=== PATIENT | female | born 1930 | race Two or more races ===

== ENCOUNTER 2017-07-03 11:38 | Emergency (ER) | payer OTHER ==
[2017-07-03 11:49] VITALS: BMI 29.2
[2017-07-03] MEDS ORDERED: MAG HYDROX/AL HYDROX/SIMETH 355 ML ORAL.SUSP PO ONE (12:22)
[2017-07-03] MEDS ORDERED: ALBUTEROL SO4 2.5/IPRATROPIUM 0.5 INH SOL 3 ML VIAL.NEB. NEB ONE ×2 (12:22→12:43)
--- NOTE | 2017-07-03 12:25 | PDOC ---
History of Present Illness - General Chief Complaint: Back Pain Stated Complaint: BACK PAIN Time Seen by Provider: 07/03/17 11:48 History Source: Patient Exam Limitations: Language Barrier - History of Present Illness Initial Comments: 07/03/17 12:24 Patient is an 86F with history of dementia, HTN, COPD, CAD, GERD, HLD and osteoporosis here today complaining of upper abdominal pain for the past 24 hours. She denies associated nausea, vomiting, fevers, chills, diarrhea and constipation. Last bowel movement was yesterday. The pain does not radiate anywhere. She denies chest pain and shortness of breath. She states that she is not taking her medication because of associated stomach pain, but her records indicate that she has an extensive list of medications that she takes. Patient' s capacity for history was limited, even with the use of an credit operations specialist. She complains of bilateral ear pain and states that she hasn't been treated for her ear infection, but her records indicate that she refused ear drops for an apparent outer ear infection. Past History - Past Medical History Allergies/Adverse Reactions: Allergies Allergy/AdvReac Type Severity Reaction Status Date / Time No Known Allergies Allergy Verified 07/03/17 11:50 Home Medications: Ambulatory Orders Acetaminophen [Tylenol] 650 mg PO QID PRN 07/03/17 Albuterol 0.083% Nebulizer Janeen [Ventolin 0.083% Nebulizer Soln -] 1 amp IN QID PRN 07/03/17 Albuterol Sulfate Inhaler - [Ventolin HFA Inhaler -] 1 puff IN QID PRN 07/03/17 Amlodipine Besylate 10 mg PO DAILY 07/03/17 Ammonium Lactate [Skin Treatment] 1 applic TP BID 07/03/17 Amox-Tr/K Cl [Augmentin - 875Mg Tablet] 1 tab PO BID #20 tablet 07/03/17 Aspirin [ASA -] 81 mg PO DAILY 07/03/17 Brimonidine Tartrate [Alphagan 0.2% -] 1 drop OS BID 07/03/17 Calcium Carbonate/Vitamin D3 [Calcium 500-Vit D3 400 Tablet] 1 tab PO BID Cholecalciferol (Vitamin D3) [Vitamin D3] 5,000 unit PO WEEKLY 07/03/17 Ciprofloxacin HCl/Dexameth [Ciprodex Otic Suspension] 1 drop OU TID 07/03/17 Donepezil HCl [Aricept -] 10 mg PO DAILY 07/03/17 Dorzolamide HCl/Timolol Maleat [Cosopt Eye Drops] 1 drop OU BID 07/03/17 Fluticasone Prop 0.05% Nasal [Flonase -] 2 sprays IN DAILY 07/03/17 Furosemide [Lasix] 20 mg PO DAILY 07/03/17 Gabapentin [Neurontin] 100 mg PO BID 07/03/17 Lactobacillus Acidophilus [Acidophilus] 460 mg PO DAILY 07/03/17 Lisinopril [Zestril] 40 mg PO DAILY 07/03/17 Loperamide HCl [Loperamide] 2 mg PO QID PRN 07/03/17 Metformin Xr [Glucophage *Xr* -] 500 mg PO DAILY@0700 07/03/17 Montelukast Na [Singulair -] 10 mg PO HS 07/03/17 Multivitamin,Therapeutic [Thera] 1 tab PO DAILY 07/03/17 Pantoprazole Sodium [Protonix] 40 mg PO DAILY 07/03/17 Potassium Chloride 20 meq PO DAILY 07/03/17 Salmeterol/Fluticasone [Advair 500Mcg/50Mcg -] 1 puff IN BID 07/03/17 Umeclidinium [place] [Incruse Ellipta] 1 puff IN DAILY 07/03/17 - Suicide/Smoking/Psychosocial Hx Smoking History: Unknown if ever smoked Review of Systems - Review of Systems Comments:: 07/03/17 12:28 GENERAL/CONSTITUTIONAL: No fever or chills. No weakness. HEAD, EYES, EARS, NOSE AND THROAT: No change in vision. Positive for ear pain and discharge. No sore throat. CARDIOVASCULAR: No chest pain or shortness of breath RESPIRATORY: No cough, wheezing, or hemoptysis. GASTROINTESTINAL: No nausea, vomiting, diarrhea or constipation. GENITOURINARY: No dysuria, frequency, or change in urination. SKIN: No rash NEUROLOGIC: No headache, vertigo, loss of consciousness, or change in strength/ sensation. ENDOCRINE: No increased thirst. No abnormal weight change ALLERGIC/IMMUNOLOGIC: No hives or skin allergy. *Physical Exam - Vital Signs Last Vital Signs Temp Pulse Resp BP Pulse Ox 98.7 F 84 16 123/73 100 07/03/17 11:38 07/03/17 11:38 07/03/17 11:38 07/03/17 11:38 07/03/17 11:38 - Physical Exam Comments: 07/03/17 12:31 GENERAL: Awake, alert, and fully oriented, in no acute distress HEAD: No signs of trauma, normocephalic, atraumatic EYES: PERRLA, EOMI, sclera anicteric, conjunctiva clear ENT: Auricles normal inspection, hearing grossly normal, nares patent, oropharynx clear without exudates. Moist mucosa EAR: Fluid level in right TM, bulging, small amount of pus LUNGS: No distress, speaks full sentences, clear to auscultation bilaterally HEART: Regular rate and rhythm, normal S1 and S2, no murmurs, rubs or gallops, peripheral pulses normal and equal bilaterally. ABDOMEN: Positive atkins sign, RUQ tenderness, epigastric tenderness, LLQ tenderness. No guarding, no rebound. No masses EXTREMITIES: Normal inspection, Normal range of motion, no edema. No clubbing or cyanosis. NEUROLOGICAL: Cranial nerves II through XII grossly intact. Normal speech, normal gait, no focal sensorimotor deficits SKIN: Warm, Dry, normal turgor, no rashes or lesions noted. ED Treatment Course - LABORATORY CBC & Chemistry Diagram: 07/03/17 10:47 07/03/17 10:47 - RADIOLOGY Radiology Studies Ordered: Category Date Time Status CXRPORT [CHEST X-RAY PORTABLE*] [RAD] Stat Radiology 07/03/17 12:12 Ordered ABDOMEN US -LIMITED [US] Stat Ultrasound 07/03/17 12:11 Ordered Medical Decision Making - Medical Decision Making 07/03/17 12:37 Patient is an 86F with history of dementia, HTN, COPD, CAD, GERD, HLD and osteoporosis here today with abdominal pain and ear pain. Vital signs stable. Will evaluate with abdominal and cardiac labs, cxr, ekg, RUQ US and CT. Differential diagnosis includes cholecystitis, diverticulitis, uti. 07/03/17 12:40 CXR shows no acute cardiopulmonary process. 07/03/17 12:56 EKG shows normal sinus rhythm, normal rate, normal axis. No ST elevations, no t- wave abnormalities. 07/03/17 14:11 Laboratory Tests 07/03/17 07/03/17 10:47 10:47 WBC 6.5 Hgb 11.6 Hct 36.2 Plt Count 221 Troponin I < 0.02 CBC normal, CMP reassuring, trop negative. 07/03/17 14:42 Ultrasound negative for any abnormalities. 07/03/17 15:42 CT shows no acute pathology in the abdomen or pelvis. Urine still pending. 07/03/17 18:23 UA normal. Discharged with augmentin to assisted living facility. First dose given here. *DC/Admit/Observation/Transfer Diagnosis at time of Disposition: Ear infection Abdominal pain Qualifiers: Abdominal location: epigastric Qualified Code(s): R10.13 - Epigastric pain - Discharge Dispostion Admit: No - Prescriptions Prescriptions: Amox-Tr/K Cl [Augmentin - 875Mg Tablet] 1 tab PO BID #20 tablet - Referrals Referrals: Saritha Diaz MD [Primary Care Provider] - - Patient Instructions Printed Discharge Instructions: Middle Ear Infection Additional Instructions: Please give the patient Augmentin 875-125 BID for 10 days, 20 in total, for a middle ear infection.
--- NOTE | 2017-07-03 12:38 | PDOC ---
Attending Attestation - HPI HPI: 07/03/17 12:38 Pt is a 86 yo F from [facility] with a PMHx of HTN, COPD, CAD, GERD, HLD, osteoporosis, Dementia who presents to the ED with epigastric pain since last night. Upon evaluation, patient is a poor historian however states her pain is likely due to her medications. Patient reports stopping her daily medications secondary to her pain however now reports her abdominal pain is worse, constant and new. Patient denies any exacerbating or alleviating factors. She denies chest pain, headache or dizziness. She denies fever, chills, nausea, vomit, diarrhea or constipation. She denies dysuria, frequency, urgency or hematuria. - Physicial Exam PE: 07/03/17 12:38 GENERAL: Awake, alert, and fully oriented, in no acute distress HEAD: No signs of trauma EYES: PERRLA, EOMI, sclera anicteric, conjunctiva clear ENT: Hearing grossly normal, nares patent, oropharynx clear without exudates. Moist mucosa. +Purulent drainage to the R ear. NECK: Normal ROM, supple, no lymphadenopathy, JVD, or masses LUNGS: Breath sounds equal, clear to auscultation bilaterally. No wheezes, and no crackles HEART: Regular rate and rhythm, normal S1 and S2, no murmurs, rubs or gallops ABDOMEN: +RUQ tenderness. +LLQ tenderness. Soft, nontender, normoactive bowel sounds. No guarding, no rebound. No masses EXTREMITIES: Normal range of motion, no edema. No clubbing or cyanosis. No cords, erythema, or tenderness NEUROLOGICAL: Cranial nerves II through XII grossly intact. Normal speech, normal gait SKIN: Warm, Dry, normal turgor, no rashes or lesions noted. - Medical Decision Making 07/03/17 12:39 Documentation prepared by Juju Taylor, acting as senior medical billing specialist for Simon Napoles MD <Juju Taylor - Last Filed: 07/03/17 12:46> - Resident Resident Name: Suraj Washburn - ED Attending Attestation I have performed the following: I have examined & evaluated the patient, The case was reviewed & discussed with the resident, I agree w/resident's findings & plan, Exceptions are as noted - Medical Decision Making 07/03/17 12:37 A portion of this note was written by my scribe, under my supervision. Vital Signs Temp Pulse Resp BP Pulse Ox 98.7 F 84 16 123/73 100 07/03/17 11:38 07/03/17 11:38 07/03/17 11:38 07/03/17 11:38 07/03/17 11:38 86 old female history dementia, hypertension, COPD, coronary disease, GERD, hyperlipidemia, osteoporosis presents with right ear pain and abdominal pain. Patient reports that the pain started yesterday night and was constant. Reports that the pain is in the upper abdominal pain in the left lower quadrant pain. The patient denies fevers or chills, nausea, vomiting or diarrhea. Came to the ED for further evaluation. The patient is demonstrating otitis media with purulence in the right ear canal. Will most certainly need antibiotics. In addition, patient with right upper quadrant pain we'll need to value for biliary colic versus acute cholecystitis. We'll also obtain an abdominal CT for left lower quadrant tenderness. Differential includes colitis, diverticulitis. 07/03/17 16:48 CBC, BMP 07/03/17 10:47 07/03/17 10:47 CMP Sodium 141 mmol/L (136-145) 07/03/17 10:47 Potassium 4.3 mmol/L (3.5-5.1) 07/03/17 10:47 Chloride 102 mmol/L (98-107) 07/03/17 10:47 Carbon Dioxide 30 mmol/L (21-32) 07/03/17 10:47 Anion Gap 9 (8-16) 07/03/17 10:47 BUN 21 mg/dL (7-18) H 07/03/17 10:47 Creatinine 0.8 mg/dL (0.55-1.02) 07/03/17 10:47 Creat Clearance w eGFR > 60 (>60) 07/03/17 10:47 Random Glucose 88 mg/dL (74-106) 07/03/17 10:47 Calcium 9.1 mg/dL (8.5-10.1) 07/03/17 10:47 Total Bilirubin 0.3 mg/dL (0.2-1.0) 07/03/17 10:47 AST 19 U/L (15-37) 07/03/17 10:47 ALT 16 U/L (12-78) 07/03/17 10:47 Alkaline Phosphatase 62 U/L (45-117) 07/03/17 10:47 Creatine Kinase 82 IU/L (26-192) 07/03/17 10:47 Troponin I < 0.02 ng/ml (0.00-0.05) 07/03/17 10:47 Total Protein 6.5 g/dl (6.4-8.2) 07/03/17 10:47 Albumin 3.4 g/dl (3.4-5.0) 07/03/17 10:47 Lipase 173 U/L (73-393) 07/03/17 10:47 CT scan of abdomen and pelvis and ultrasound demonstrates no acute findings. UA pending. <Simon Napoles - Last Filed: 07/03/17 16:49> Heart Score/ECG Review #1 ECG reviewed & interpreted by me at: 12:30 07/03/17 13:01 NSR 72, no std/ean, normal axis, normal intervals, QTC 458 msec <Simon Napoles - Last Filed: 07/03/17 16:49>
[2017-07-03] MEDS ORDERED: MAG HYDROX/AL HYDROX/SIMETH 30 ML UNIT-DOSE CUP ONE (12:43)
[2017-07-03 12:54] LABS: BASOPHIL 1.1 % (0-2.0); EOSINOPHIL 2.8 % (0-4.5); MCH 28.4 pg (25.7-33.7); MEAN CELL VOLUME 88.7 fl (80-96); MEAN PLT VOLUME 8.2 fl (7.5-11.1); NEUTROPHILS 52.5 % (42.8-82.8); PLATELET COUNT 221 K/MM3 (134-434); RDW 15.6 % (11.6-15.6); WHITE BLOOD COUNT 6.5 K/mm3 (4.0-10.0)
[2017-07-03 13:21] LABS: ALBUMIN 3.4 g/dl (3.4-5.0); ANION GAP 9 (8-16); BILIRUBIN,TOTAL 0.3 mg/dL (0.2-1.0); CALCIUM 9.1 mg/dL (8.5-10.1); CO2 30 mmol/L (21-32); CREATININE 0.8 mg/dL (0.55-1.02); GLUCOSE,RANDOM 88 mg/dL (74-106); SGPT/ALT 16 U/L (12-78); TOT PROT 6.5 g/dl (6.4-8.2)
[2017-07-03 13:22] LABS: ALK PHOS 62 U/L (45-117); SGOT/AST 19 U/L (15-37)
[2017-07-03 13:24] LABS: CPK 82 IU/L (26-192); TROPONIN I < 0.02 ng/ml (0.00-0.05)
[2017-07-03 16:29] LABS: URINE APPEARANCE CLEAR; URINE BILIRUBIN NEGATIVE (NEGATIVE); URINE BLOOD NEGATIVE (NEGATIVE); URINE COLOR STRAW; URINE GLUCOSE (UA) NEGATIVE (NEGATIVE); URINE KETONE TRACE (NEGATIVE); URINE NITRITE NEGATIVE (NEGATIVE); URINE PROTEIN NEGATIVE (NEGATIVE); URINE UROBILINOGEN NEGATIVE mg/dL (0.2-1.0)
[2017-07-03 16:52] LABS: URINE LEUK ESTERASE 1+ (NEGATIVE)
[2017-07-03 16:54] LABS: URINE RBC 1 /hpf (0-3); URINE WBC 7 /hpf (3-5)
[2017-07-03] MEDS ORDERED: AMOX TR/POT CLAV 875MG/125MG TABLETS (FP) PO ONE (17:21)
[2017-07-03] MEDS ORDERED: AMOX TR/POT CLAV 875MG/125MG TABLETS (FP) ONE (17:46)
--- NOTE | 2017-07-04 09:41 | EKG ---
Test Reason : Blood Pressure : / mmHG Vent. Rate : 079 BPM Atrial Rate : 079 BPM P-R Int : 170 ms QRS Dur : 088 ms QT Int : 400 ms P-R-T Axes : 025 -14 029 degrees QTc Int : 458 ms NORMAL SINUS RHYTHM NORMAL ECG NO PREVIOUS ECGS AVAILABLE Confirmed by OLAMIDE HDZ MD ([id number]) on 07/04/2017 9:40:52 AM Referred By: Confirmed By:OLAMIDE HDZ MD
[2017-07-04 11:44] VITALS: BP 134/82; PULSE 88; TEMP 98.7
== END 2017-07-03 19:46 | disposition home or self-care (01) ==
LOC: JER 11:38
PROC: 3E0F7GC Introduction of Other Therapeutic Substance into Respiratory Tract, Via Natural or Artificial Opening (ICD-10-PCS; principal; 2017-07-03)
DX: R10.10 Upper abdominal pain, unspecified (principal); H66.91 Otitis media, unspecified, right ear; I25.10 Atherosclerotic heart disease of native coronary artery without angina pectoris; I10 Essential (primary) hypertension; J44.9 Chronic obstructive pulmonary disease, unspecified; K21.9 Gastro-esophageal reflux disease without esophagitis; F03.90 Unspecified dementia, unspecified severity, without behavioral disturbance, psychotic disturbance, mood disturbance, and anxiety
CPT/HCPCS: 36415; 71010-TC; 74177-TC; 76705-TC; 80053; 81003; 81015; 83690; 84484; 85025; 87086; 93005; 93010; 94640; 99282-25

== ENCOUNTER 2019-03-20 19:46 | Emergency (ER) | payer OTHER ==
[2019-03-20 20:15] VITALS: BP 160/90; PULSE 73; TEMP 98.1; BMI 28.5
--- NOTE | 2019-03-20 20:39 | PDOC ---
History of Present Illness - General Chief Complaint: Asthma Stated Complaint: SHORTNESS OF BREATH Time Seen by Provider: 03/20/19 20:17 History Source: Patient Exam Limitations: No Limitations - History of Present Illness Initial Comments: 03/20/19 20:19 88YOF with h/o asthma, HTN, CAD, HLD, GERD, osteoporosis, dementia who p/w SOB, wheezing, and mild intermittent subjective fever, onset today. She states she ran out of her normal COPD medications at home and the pharmacy is closed so she cannot technical support associate new ones. Also notes she has some degree of chronic abdominal pain (points to multiple areas in the abdomen) but maybe increased pain over the past few days. She denies nausea, vomiting, diarrhea, constipation , black/bloody/white stool, difficulty eating, cough, sputum production, or other symptoms. Past History - Past Medical History Allergies/Adverse Reactions: Allergies Allergy/AdvReac Type Severity Reaction Status Date / Time No Known Allergies Allergy Verified 03/20/19 19:51 Home Medications: Ambulatory Orders Acetaminophen [Tylenol] 650 mg PO QID PRN 07/03/17 Albuterol 0.083% Nebulizer Janeen [Ventolin 0.083% Nebulizer Soln -] 1 amp IN QID PRN 07/03/17 Albuterol Sulfate Inhaler - [Ventolin HFA Inhaler -] 1 puff IN QID PRN 07/03/17 Amlodipine Besylate 10 mg PO DAILY 07/03/17 Ammonium Lactate [Skin Treatment] 1 applic TP BID 07/03/17 Amox-Tr/K Cl [Augmentin 875-125mg Tablet -] 1 tab PO BID #20 tablet 07/03/17 Aspirin [ASA -] 81 mg PO DAILY 07/03/17 Brimonidine Tartrate [Alphagan 0.2% -] 1 drop OS BID 07/03/17 Calcium Carbonate/Vitamin D3 [Calcium 500-Vit D3 400 Tablet] 1 tab PO BID Cholecalciferol (Vitamin D3) [Vitamin D3] 5,000 unit PO WEEKLY 07/03/17 Ciprofloxacin HCl/Dexameth [Ciprodex Otic Suspension] 1 drop OU TID 07/03/17 Donepezil HCl [Aricept -] 10 mg PO DAILY 07/03/17 Dorzolamide HCl/Timolol Maleat [Cosopt Eye Drops] 1 drop OU BID 07/03/17 Fluticasone Prop 0.05% Nasal [Flonase -] 2 sprays IN DAILY 07/03/17 Furosemide [Lasix] 20 mg PO DAILY 07/03/17 Gabapentin [Neurontin] 100 mg PO BID 07/03/17 Lactobacillus Acidophilus [Acidophilus] 460 mg PO DAILY 07/03/17 Lisinopril [Zestril] 40 mg PO DAILY 07/03/17 Loperamide HCl [Loperamide] 2 mg PO QID PRN 07/03/17 Montelukast Na [Singulair -] 10 mg PO HS 07/03/17 Multivitamin,Therapeutic [Thera] 1 tab PO DAILY 07/03/17 Pantoprazole Sodium [Protonix] 40 mg PO DAILY 07/03/17 Potassium Chloride 20 meq PO DAILY 07/03/17 Salmeterol/Fluticasone [Advair 500Mcg/50Mcg -] 1 puff IN BID 07/03/17 Umeclidinium [place] [Incruse Ellipta] 1 puff IN DAILY 07/03/17 metFORMIN XR [Glucophage Xr -] 500 mg PO DAILY@0700 07/03/17 Albuterol Sulfate Inhaler - [Ventolin HFA Inhaler -] 1 puff IH QID PRN #1 inhaler 03/20/19 Azithromycin 250 mg PO DAILY #4 tablet 03/20/19 Prednisone [Deltasone] 40 mg PO DAILY #8 tablet 03/20/19 Dementia: Yes HTN: Yes Hypercholesterolemia: Yes Psychiatric Problems: Yes (behavior disturbance) - Suicide/Smoking/Psychosocial Hx Smoking History: Never smoked Have you smoked in the past 12 months: No Information on smoking cessation initiated: No Hx Alcohol Use: No Drug/Substance Use Hx: No Review of Systems - Review of Systems Able to Perform ROS?: Yes Comments:: GEN: fever, chills, no malaise, generalized weakness, or weight change HEENT: no ear pain, sore throat, vision change, or eye pain CV: no chest pain, palpitations, lightheadedness, syncope, or edema RESP: cough, wheezing, SOB GI: abdominal pain, no nausea, vomiting, diarrhea, constipation, or white/black/ bloody stool : no dysuria, hematuria, incontinence, retention, bleeding, or discharge MSK: no neck/back pain, muscle weakness/pain, or joint swelling/pain NEURO: no headache, seizure, vertigo, numbness, tingling, or focal weakness PSYCH: no substance use, no behavior change SKIN: no jaundice, no rash ROS otherwise negative except as noted in HPI *Physical Exam - Vital Signs Last Vital Signs Temp Pulse Resp BP Pulse Ox 98.1 F 73 20 160/90 100 03/20/19 20:10 03/20/19 20:10 03/20/19 20:10 03/20/19 20:10 03/20/19 20:10 - Physical Exam Comments: GENERAL: very pleasant P[place]-speaking elderly female, supportive son at bedside, nontoxic and well-appearing, A/Ox4, no distress, answers questions appropriately HEENT: PERRLA, EOMI, moist mucous membranes NECK/BACK: no midline ttp, no spinal stepoff or deformity, no hematoma, full ROM , neck supple CARDIOVASCULAR: regular rate/rhythm, normal S1S2, 2/6 systolic ejection murmur, strong peripheral pulses, capillary refill <2 seconds, extremities wwp, no edema LUNGS/RESPIRATORY: no respiratory distress, b/l expiratory wheezes and rhonchi without crackles or decreased breath sounds GI/ABDOMEN: symmetric [id number], normoactive BS, soft, mild suprapubic ttp, no midline pulsatile masses : no CVA tenderness EXTREMITIES: no muscle atrophy, no acute deformity SKIN: warm and dry, no pallor, no jaundice, no rash, no bruising, no skin breakdown, no cuts, no lesions NEUROLOGICAL: GCS 15, CN II-XII grossly intact, 5/5 strength proximally and distally, no facial droop Heart Score/ECG Review #1 Sinus rhythm, rate of 70, normal axis and intervals, no ST-T changes ED Treatment Course - LABORATORY CBC & Chemistry Diagram: 03/20/19 21:22 03/20/19 21:22 Medical Decision Making - Medical Decision Making Pt with h/o asthma p/w respiratory distress like their prior asthma exacerbation. No reported h/o asthma-related intubation, PTX, seizure, LOC, hypercapnia, acidosis, etc. Initial Vital Signs Temp Pulse Resp BP Pulse Ox 98.1 F 73 20 160/90 100 03/20/19 20:10 03/20/19 20:10 03/20/19 20:10 03/20/19 20:10 03/20/19 20:10 Exam: As noted in Physical Exam section. DDX IBNLT: asthma exacerbation, COPD, bronchitis, viral URI, influenza, PNA, PTX , CHF, ACS, pericarditis, etc. Also possible UTI given mild suprapubic pain/ subjective f/c. W/U ordered: Labs as noted below; CXR EKG TX ordered: DuoNelucia SoluMedrol EKG: Reviewed; results as noted in ECG Review section. CXR: Nothing acute Laboratory Tests 03/20/19 03/20/19 03/20/19 21:22 21:22 21:22 WBC 5.6 RBC 4.36 Hgb 12.2 Hct 37.6 MCV 86.2 MCH 28.0 MCHC 32.5 RDW 15.3 Plt Count 203 MPV 8.3 Absolute Neuts (auto) 2.2 Neutrophils % 38.4 L D Lymphocytes % 42.7 H D Monocytes % 11.8 H Eosinophils % 6.4 H D Basophils % 0.7 Nucleated RBC % 0 Sodium 141 Potassium 4.2 Chloride 105 Carbon Dioxide 32 Anion Gap 4 L BUN 12.6 Creatinine 0.6 Est GFR (CKD-EPI)AfAm 93.66 Est GFR (CKD-EPI)NonAf 80.81 Random Glucose 104 Calcium 9.1 Magnesium 2.4 Total Bilirubin 0.2 AST 18 ALT 22 Alkaline Phosphatase 86 Creatine Kinase 108 Troponin I < 0.02 B-Natriuretic Peptide 114.5 Total Protein 6.5 Albumin 3.5 Urine Color Urine Appearance Urine pH Ur Specific [place] Urine Protein Urine Glucose (UA) Urine Ketones Urine Blood Urine Nitrite Urine Bilirubin Urine Urobilinogen Ur Leukocyte Esterase 03/20/19 22:20 WBC RBC Hgb Hct MCV MCH MCHC RDW Plt Count MPV Absolute Neuts (auto) Neutrophils % Lymphocytes % Monocytes % Eosinophils % Basophils % Nucleated RBC % Sodium Potassium Chloride Carbon Dioxide Anion Gap BUN Creatinine Est GFR (CKD-EPI)AfAm Est GFR (CKD-EPI)NonAf Random Glucose Calcium Magnesium Total Bilirubin AST ALT Alkaline Phosphatase Creatine Kinase Troponin I B-Natriuretic Peptide Total Protein Albumin Urine Color Yellow Urine Appearance Clear Urine pH 6.0 Ur Specific [place] 1.011 Urine Protein Negative Urine Glucose (UA) Negative Urine Ketones Negative Urine Blood Negative Urine Nitrite Negative Urine Bilirubin Negative Urine Urobilinogen 0.2 Ur Leukocyte Esterase Negative Reassessment: Patient much improved, no abnormal breath sounds, wheezing improved. The Pt has gotten significant relief of symptoms while in the ED. Workup is not concerning for emergency-level pathology at this time. E-Rx sent for 4-days prednisone 40 mg, Albuterol MDI, azithromycin. The Pt is appropriate for discharge with close outpatient follow up. She is comfortable with this plan and will follow up with their primary care provider in 1-3 days. Specific return precautions are discussed and they will come back to the ER if necessary. *DC/Admit/Observation/Transfer Diagnosis at time of Disposition: Asthma exacerbation Qualifiers: Asthma severity: unspecified severity Asthma persistence: unspecified Qualified Code(s): J45.901 - Unspecified asthma with (acute) exacerbation - Discharge Dispostion Disposition: HOME Condition at time of disposition: Stable Decision to Admit order: No - Prescriptions Prescriptions: Albuterol Sulfate Inhaler - [Ventolin HFA Inhaler -] 1 puff IH QID PRN #1 inhaler PRN Reason: Asthma Azithromycin 250 mg PO DAILY #4 tablet Prednisone [Deltasone] 40 mg PO DAILY #8 tablet - Referrals Referrals: Sonny Diaz MD [Primary Care Provider] - - Patient Instructions Printed Discharge Instructions: Asthma -- Adult Additional Instructions: You were seen in the ER for asthma exacerbation. We gave you steroids and breathing treatments which resolved your symptoms while you were here in the department. We did blood work and a chest x-ray which did not show any concerning findings. After our assessment, we do not believe you are having a medical emergency at this time, and we believe you are safe to go home. We are sending a prescription for prednisone and azithromycin to your pharmacy. Please take the whole course as prescribed, and follow up with your primary care provider(s) in the next 1-3 days. Call their clinic [facility], tell them you were seen in the ER for asthma, and tell them you need an appointment. Please come back to the ER at any time (24 hours a day) for any new or worsening symptoms, like worsened wheezing/shortness of breath that is not relieved with your home medications, new severe chest pain, loss of consciousness, or seizure. If you are having severe or life threatening symptoms, or symptoms that make it unsafe to drive or have someone drive you, please call 911. - Post Discharge Activity
[2019-03-20] MEDS ORDERED: ALBUTEROL SO4 2.5/IPRATROPIUM 0.5 INH SOL 3 ML VIAL.NEB. NEB ONE ×2 (20:40→20:56)
[2019-03-20] MEDS ORDERED: ALBUTEROL SO4 8 GM HFA INHALER IH ONE (20:40)
[2019-03-20] MEDS ORDERED: methylPREDNISolone NA SUCC 125 MG/2 ML VIAL IVPUSH ONE (20:41)
[2019-03-20] MEDS ORDERED: ALBUTEROL SO4 0.083% IH SOL 2.5 MG/3 ML VIAL.NEB. NEB ONE (20:56)
[2019-03-20] MEDS ORDERED: methylPREDNISolone NA SUCC 125 MG/2 ML VIAL ONE (20:56)
[2019-03-20 21:33] LABS: BASO % 0.7 % (0-2.0); EOS % 6.4 % (0-4.5); HEMATOCRIT 37.6 % (32.4-45.2); HEMOGLOBIN 12.2 GM/dL (10.7-15.3); LYMPH % 42.7 % (8-40); MCHC 32.5 g/dl (32.0-36.0); MEAN CELL VOLUME 86.2 fl (80-96); MEAN PLT VOLUME 8.3 fl (7.5-11.1); MONO % 11.8 % (3.8-10.2); NEUT % 38.4 % (42.8-82.8); PLATELET COUNT 203 K/MM3 (134-434); RBC 4.36 M/mm3 (3.60-5.2); RDW 15.3 % (11.6-15.6); WHITE BLOOD COUNT 5.6 K/mm3 (4.0-10.0)
[2019-03-20 22:01] LABS: ALBUMIN 3.5 g/dl (3.4-5.0); ALK PHOS 86 U/L (45-117); ANION GAP 4 MMOL/L (8-16); BILIRUBIN,TOTAL 0.2 mg/dL (0.2-1); BLOOD UREA NITROGEN 12.6 mg/dL (7-18); CALCIUM 9.1 mg/dL (8.5-10.1); CHLORIDE 105 mmol/L (98-107); CO2 32 mmol/L (21-32); CREATININE 0.6 mg/dL (0.55-1.3); GLUCOSE,RANDOM 104 mg/dL (74-106); MAGNESIUM 2.4 mg/dL (1.8-2.4); POTASSIUM 4.2 mmol/L (3.5-5.1); SGOT/AST 18 U/L (15-37); SGPT/ALT 22 U/L (13-61); SODIUM 141 mmol/L (136-145); TOT PROT 6.5 g/dl (6.4-8.2)
--- NOTE | 2019-03-20 22:01 | PDOC ---
Documentation entered by Jennifer Funez SCRIBE, acting as scribe for Tabatha Adler DO. Tabatha Adler DO: This documentation has been prepared by the Armin meng Sammi, SCRIBE, under my direction and personally reviewed by me in its entirety. I confirm that the documentation accurately reflects all work, treatment, procedures, and medical decision making performed by me. Attending Attestation - Resident Resident Name: Natalia Pena - ED Attending Attestation I have performed the following: I have examined & evaluated the patient, The case was reviewed & discussed with the resident, I agree w/resident's findings & plan, Exceptions are as noted - HPI HPI: 03/20/19 20:52 The patient is an 88 year old female, with a significant PMH of COPD, HTN, CAD, GERD, HLD, osteoporosis, dementia, who presents to the emergency department for evaluation of wheezing and SOB. The patient states she ran out of her COPD medications, prompting her arrival to the ED. She also notes intermittent fevers over the past two weeks as well as chronic diffuse abdominal pain. The patient denies chest pain, headache and dizziness. Denies chills, nausea, vomit, diarrhea and constipation. Allergies: NKA - Physicial Exam PE: 03/20/19 21:02 GENERAL: Awake, alert, and fully oriented, in no acute distress HEAD: No signs of trauma EYES: PERRLA, EOMI, sclera anicteric, conjunctiva clear ENT: Auricles normal inspection, hearing grossly normal, nares patent, oropharynx clear without exudates. Moist mucosa NECK: Normal ROM, supple, no lymphadenopathy, JVD, or masses LUNGS: (+) diffuse wheezing. No crackles or rales HEART: Regular rate and rhythm, normal S1 and S2, no murmurs, rubs or gallops ABDOMEN: (+)Diffuse suprapubic tenderness. Soft, normoactive bowel sounds. No guarding, no rebound. No masses EXTREMITIES: (+)Trace pitting edema bilateral lower extremities. No clubbing or cyanosis. No cords, erythema, or tenderness NEUROLOGICAL: Cranial nerves II through XII grossly intact. Normal speech, normal gait SKIN: Warm, Dry, normal turgor, no rashes or lesions noted - Medical Decision Making 03/20/19 21:56 I, Dr. Tabatha Adler, DO, attest that this document has been prepared under my direction and personally reviewed by me in its entirety. I further attest, that it accurately reflects all work, treatment, procedures and medical decision -making performed by me. 03/20/19 21:57 a/p: 88yo female with sob -pt ran out of her asthma meds -c/o worsening sob x 1 week with a cough - productive yellow sputum -pt also c/o dysuria - states subjective fevers x 2 weeks intermittently for which she has taken tylenol -pt unsure when she last had her asthma meds -pt with diffuse wheezing on exam -afebrile in the ed -sat 98% ra -speaking in full sentences -will send labs, ekg, cxr -nebs, steroids -concer for asthma exacerbation and uti -will monitor and reassess 03/20/19 22:01 cxr clear cbc reviewed, no elevated wbc 03/20/19 23:32 pt feeling much better pt lungs cta pulse ox 98% pt laughing and chatting with her son requesting to go home, feels better will dc with inhalers, steroids, azithromycin stable for dc to home Heart Score/ECG Review - ECG Intrepretation Comment:: 03/20/19 23:33 sinus at 70, nl axis, nl interval, no acute st/t wave findings
[2019-03-20 22:28] LABS: URINE APPEARANCE CLEAR; URINE BILIRUBIN NEGATIVE (NEGATIVE); URINE COLOR YELLOW; URINE GLUCOSE (UA) NEGATIVE (NEGATIVE); URINE KETONE NEGATIVE (NEGATIVE); URINE LEUK ESTERASE NEGATIVE (NEGATIVE); URINE NITRITE NEGATIVE (NEGATIVE); URINE PROTEIN NEGATIVE (NEGATIVE); URINE UROBILINOGEN 0.2 mg/dL (0.2-1.0)
[2019-03-20] MEDS ORDERED: AZITHROMYCIN 250 MG TABLET PO ONE (23:29)
[2019-03-20] MEDS ORDERED: AZITHROMYCIN 250 MG TABLET ONE (23:33)
--- NOTE | 2019-03-21 12:30 | EKG ---
Test Reason : Blood Pressure : / mmHG Vent. Rate : 070 BPM Atrial Rate : 070 BPM P-R Int : 180 ms QRS Dur : 086 ms QT Int : 402 ms P-R-T Axes : 057 -14 066 degrees QTc Int : 434 ms NORMAL SINUS RHYTHM NONSPECIFIC T WAVE ABNORMALITY ABNORMAL ECG WHEN COMPARED WITH ECG OF 03-JUL-2017 12:28, NO SIGNIFICANT CHANGE WAS FOUND Confirmed by JUN STALEY MD ([id number]) on 03/21/2019 12:30:26 PM Referred By: Confirmed By:JUN STALEY MD
== END 2019-03-21 00:08 | disposition home or self-care (01) ==
LOC: JER 19:46
PROC: 3E0F7GC Introduction of Other Therapeutic Substance into Respiratory Tract, Via Natural or Artificial Opening (ICD-10-PCS; principal; 2019-03-20)
PROC: 3E0F7GC Introduction of Other Therapeutic Substance into Respiratory Tract, Via Natural or Artificial Opening (ICD-10-PCS; 2019-03-20)
PROC: 3E0333Z Introduction of Anti-inflammatory into Peripheral Vein, Percutaneous Approach (ICD-10-PCS; 2019-03-20)
DX: J45.901 Unspecified asthma with (acute) exacerbation (principal); I25.10 Atherosclerotic heart disease of native coronary artery without angina pectoris; I10 Essential (primary) hypertension; J44.9 Chronic obstructive pulmonary disease, unspecified; K21.9 Gastro-esophageal reflux disease without esophagitis; F03.90 Unspecified dementia, unspecified severity, without behavioral disturbance, psychotic disturbance, mood disturbance, and anxiety
CPT/HCPCS: 36415; 71045-TC-FY; 80053; 81003; 82550; 83735; 83880; 84484; 85025; 87086; 93005; 93010; 99282-25

== ENCOUNTER 2019-06-04 06:51 | Day surgery (SDC) | payer OTHER ==
[2019-06-04 07:52] VITALS: BMI 30.6
[2019-06-04 08:28] VITALS: TEMP 98.5
[2019-06-04 09:39] VITALS: BP 149/53; PULSE 62
--- NOTE | 2019-06-05 17:35 | PATH ---
Surgical Pathology Report Patient Name: IVY AVILES [facility]. Rec. #: [id number] /Age/Gender: 1930 (Age: 88) / F Account: [id number] Location: [facility]-ENDOSCOPY Taken: 06/04/2019 Received: 06/04/2019 Reported: 06/05/2019 Physicians: Alex Glover M.D. Specimen(s) Received SIGMOID COLON Clinical History History of colon cancer. Postoperative diagnosis: Diverticulosis Final Diagnosis SIGMOID COLON, BIOPSY: COLONIC MUCOSA WITH MILD SUPERFICIAL HYPERPLASTIC FEATURES. Comment: Features diagnostic of lymphocytic or collagenous colitis are not identified. Electronically Signed Arelis Miller M.D. Gross Description Received in formalin, labeled "sigmoid colon" are 3 smalls, irregular portions of soft tissue, ranging from 0.2-0.7 cm. in greatest dimension. The specimens are submitted in toto in one cassette. AE/06/04/2019 ebram/06/04/2019
== END 2019-06-04 09:59 | disposition home or self-care (01) ==
LOC: JASU-ENDO 06:51
PROVIDERS: ATTEND Internal Medicine Gastroenterology
PROC: 0DBN8ZX Excision of Sigmoid Colon, Via Natural or Artificial Opening Endoscopic, Diagnostic (ICD-10-PCS; principal; 2019-06-04 08:00)
DX: Z85.038 Personal history of other malignant neoplasm of large intestine (principal); K57.30 Diverticulosis of large intestine without perforation or abscess without bleeding; K63.89 Other specified diseases of intestine; K64.8 Other hemorrhoids
CPT/HCPCS: 88305-TC